=== PATIENT | female | born 1955 | race African-American/Black ===

== ENCOUNTER → 2016-08-26 | Outpatient (CLI) | payer OTHER ==
[~2016-08-26] MED LIST: AMLO10TA2 PO; CIPR500T89 PO; DARV100T; FISH1000 PO; FLAG500T PO; LISI-542 PO; METF500T PO; METO25TAB PO; NORC5TAB PO; PROTPAK PO; RANI150T PO; SIMV20TA2 PO; VITA100066 PO; VITMTA PO; ZOFR20TA PO
== END ==
LOC: M LRY 13:13
PROVIDERS: ATTEND Physician Assistant
DX: M17.0 Bilateral primary osteoarthritis of knee (principal)

== ENCOUNTER → 2016-08-26 | Outpatient (REF) | payer OTHER | LOC: M SFHCLERA 13:19 | PROVIDERS: ATTEND Family Medicine | DX: E11.69 Type 2 diabetes mellitus with other specified complication (principal) ==

== ENCOUNTER → 2016-09-01 | Outpatient (CLI) | payer OTHER ==
[2016-09-01 17:27] LABS: ALBUMIN 4.3 GM/DL (3.2-5.2); ALKALINE PHOSPHATASE 63 U/L (45-117); ALT/SGPT 33 U/L (12-78); ANION GAP 10 MEQ/L (8-16); AST/SGOT 27 U/L (15-37); BILIRUBIN,DIRECT 0.1 MG/DL (0.0-0.2); BILIRUBIN,TOTAL 0.4 MG/DL (0.2-1.0); BLOOD UREA NITROGEN 14 MG/DL (7-18); CALCIUM LEVEL 9.7 MG/DL (8.8-10.2); CARBON DIOXIDE LEVEL 30 MEQ/L (21-32); CHLORIDE LEVEL 101 MEQ/L (98-107); CREATININE FOR GFR 0.72 MG/DL (0.55-1.02); GLOMERULAR FILTRATION RATE > 60.0 (>45); GLUCOSE, FASTING 76 MG/DL (80-110); PHOSPHORUS LEVEL 3.8 MG/DL (2.5-4.9); POTASSIUM SERUM 4.4 MEQ/L (3.5-5.1); SODIUM LEVEL 141 MEQ/L (136-145); TOTAL PROTEIN 7.6 GM/DL (6.4-8.2)
== END ==
LOC: M LRY 11:16
PROVIDERS: ATTEND Physician Assistant
DX: M17.0 Bilateral primary osteoarthritis of knee (principal)

== ENCOUNTER → 2016-09-01 | Outpatient (REF) | payer OTHER ==
[2016-09-01 17:24] LABS: MEAN CORPUSCULAR HEMOGLOBIN 28.6 pg (27.0-33.0); MEAN CORPUSCULAR VOLUME 89.5 fl (80.0-96.0); WHITE BLOOD COUNT 5.4 K/mm3 (4.0-10.0)
[2016-09-01 17:25] LABS: ALBUMIN 4.2 GM/DL (3.2-5.2); ALBUMIN/GLOBULIN RATIO 1.35 (1.00-1.93); ALKALINE PHOSPHATASE 66 U/L (45-117); ALT/SGPT 31 U/L (12-78); ANION GAP 10 MEQ/L (8-16); AST/SGOT 25 U/L (15-37); BILIRUBIN,TOTAL 0.3 MG/DL (0.2-1.0); BLOOD UREA NITROGEN 14 MG/DL (7-18); CALCIUM LEVEL 9.9 MG/DL (8.8-10.2); CARBON DIOXIDE LEVEL 30 MEQ/L (21-32); CHLORIDE LEVEL 103 MEQ/L (98-107); CHOLESTEROL LEVEL 257 MG/DL (<200); CREATININE FOR GFR 0.68 MG/DL (0.55-1.02); GLOMERULAR FILTRATION RATE > 60.0 (>45); GLUCOSE, FASTING 80 MG/DL (80-110); POTASSIUM SERUM 4.3 MEQ/L (3.5-5.1); SODIUM LEVEL 143 MEQ/L (136-145); TOTAL PROTEIN 7.3 GM/DL (6.4-8.2); TRIGLYCERIDES LEVEL 99 MG/DL (<150)
== END ==
LOC: M SFHCLERA 11:13
PROVIDERS: ATTEND Family Medicine
DX: E11.69 Type 2 diabetes mellitus with other specified complication (principal)

== ENCOUNTER → 2016-12-10 | Outpatient (CLI) | payer OTHER ==
[~2016-12-10] MED LIST changes: +NORC1TAB4 PO; -NORC5TAB PO
--- NOTE | 2016-12-15 11:06 | DEXA ---
AP SPINE L1 - L4 1.319 1.0 1.5 LT FEMUR TOTAL 0.903 -0.8 -0.9 RT FEMUR TOTAL 0.915 -0.7 -0.8 TOTAL BODY TOTAL OTHER DUAL FEMUR FRAX* ASSESSMENT Risk factors: Family history (parent hip fracture). Tobacco use ( current smoker). 10 year probability of fracture Major osteoporotic fracture 16.9 % Hip fracture 1.7 % COMMENTS: Normal bone densitometry of the spine. There is low bone density of the hips. FOLLOW-UP: Recommendation for the next bone density exam: 2 years. MTDD
== END ==
LOC: M WHC 13:54
PROVIDERS: ATTEND Family Medicine
DX: Z13.820 Encounter for screening for osteoporosis (principal); M85.80 Other specified disorders of bone density and structure, unspecified site

== ENCOUNTER → 2017-01-15 | Outpatient (CLI) | payer OTHER ==
[~2017-01-15] MED LIST changes: +GABA-279 PO
--- NOTE | 2017-01-15 11:04 | REP ---
Clinical: Trauma. Technique: AP, lateral, bilateral oblique and sunrise views of the left knee. Findings: Soft tissue swelling and moderate to large suprapatellar effusion is appreciated. Underlying osteopenia and early advanced tricompartmental osteoarthritic degenerative changes are noted. No obvious acute fracture. Impression: Anterior swelling and moderate to large suprapatellar effusion. Osteopenia and early advanced tricompartmental arthritic changes. No obvious acute fracture dislocation. Signed by Ramesh Givens MD 01/15/2017 10:56 A
--- NOTE | 2017-01-15 11:06 | REP ---
Clinical: Trauma. Technique: AP and frog lateral views of the left femur conjunction with the series. Findings: Moderate age-related changes at the left hip noted along with early advanced tricompartmental changes at the knee. Anterior swelling at the knee and moderate to large suprapatellar effusion is identified. There is no evidence for acute femoral fracture or dislocation. Impression: No acute fracture dislocation. Arthritic degenerative changes. Swelling at the knee and moderate to large suprapatellar effusion. Signed by Ramesh Givens MD 01/15/2017 10:58 A
== END ==
LOC: M LRY 10:22
PROVIDERS: ATTEND Nurse Practitioner Family
DX: M17.9 Osteoarthritis of knee, unspecified (principal); M25.462 Effusion, left knee; M85.862 Other specified disorders of bone density and structure, left lower leg

== ENCOUNTER 2017-01-18 18:27 | Emergency (ER) | payer OTHER ==
[~2017-01-18] VITALS: Ht 157.5 cm; Wt 63.5 kg
[~2017-01-18 18:27] MED LIST changes: -GABA-279 PO
[2017-01-18] MEDS ORDERED: GABA-279 PO (18:44)
[2017-01-18] MEDS ORDERED: ACETAMINOPHEN TAB 650MG DOSE (2X325MG) PO ONE (19:15)
--- NOTE | 2017-01-18 19:53 | REP ---
Clinical: Trauma. Pain and swelling. Technique: AP and lateral views of the left tibia / fibula. Findings: Moderate arthritic degenerative changes at the knee and ankle joint are appreciated. No acute fracture or dislocation identified. Subcutaneous emphysema or radiodense foreign body. Impression: Moderate arthritic degenerative changes at the knee and ankle. No acute fracture or dislocation. Signed by Ramesh Givens MD 01/18/2017 07:45 P
--- NOTE | 2017-01-18 19:55 | REP ---
Clinical: Trauma. Pain and swelling. Technique: AP, lateral, bilateral oblique and sunrise views of the left knee. Findings: Moderate tricompartmental osteoarthritic degenerative changes are appreciated. Soft tissue swelling is noted along with joint and suprapatellar effusion. No obvious acute fracture or dislocation identified. Impression: Moderate tricompartmental osteoarthritic degenerative changes. Soft tissue swelling and effusion. No obvious acute fracture or dislocation. Signed by Ramesh Givens MD 01/18/2017 07:47 P
[2017-01-18 20:05] VITALS: BP 141/67
== END 2017-01-18 20:10 | disposition home or self-care (01) ==
LOC: M ED 19:26
DX: M25.462 Effusion, left knee (principal); S80.12XA Contusion of left lower leg, initial encounter; S80.02XA Contusion of left knee, initial encounter; W17.2XXA Fall into hole, initial encounter; Y92.410 Unspecified street and highway as the place of occurrence of the external cause; Y93.89 Activity, other specified; Y99.0 Civilian activity done for income or pay; M17.12 Unilateral primary osteoarthritis, left knee; E78.00 Pure hypercholesterolemia, unspecified; I10 Essential (primary) hypertension; E11.9 Type 2 diabetes mellitus without complications; F17.200 Nicotine dependence, unspecified, uncomplicated; Z90.79 Acquired absence of other genital organ(s); Z79.899 Other long term (current) drug therapy

== ENCOUNTER → 2017-01-23 | Outpatient (REF) | payer OTHER ==
[~2017-01-23] MED LIST changes: +GABA-279 PO
[2017-01-23 16:56] LABS: ALBUMIN 3.8 GM/DL (3.2-5.2); ALBUMIN/GLOBULIN RATIO 1.15 (1.00-1.93); ALKALINE PHOSPHATASE 68 U/L (45-117); ALT/SGPT 32 U/L (12-78); ANION GAP 8 MEQ/L (8-16); AST/SGOT 32 U/L (15-37); BILIRUBIN,TOTAL 0.4 MG/DL (0.2-1.0); BLOOD UREA NITROGEN 12 MG/DL (7-18); CALCIUM LEVEL 9.6 MG/DL (8.8-10.2); CARBON DIOXIDE LEVEL 28 MEQ/L (21-32); CHLORIDE LEVEL 103 MEQ/L (98-107); CHOLESTEROL LEVEL 206 MG/DL (<200); CREATININE FOR GFR 0.64 MG/DL (0.55-1.02); GLOMERULAR FILTRATION RATE > 60.0 (>45); GLUCOSE, FASTING 78 MG/DL (80-110); POTASSIUM SERUM 4.7 MEQ/L (3.5-5.1); SODIUM LEVEL 139 MEQ/L (136-145); TOTAL PROTEIN 7.1 GM/DL (6.4-8.2); TRIGLYCERIDES LEVEL 105 MG/DL (<150)
[2017-01-23 17:25] LABS: MEAN CORPUSCULAR HEMOGLOBIN 28.3 pg (27.0-33.0); MEAN CORPUSCULAR HGB CONC 31.8 g/dl (32.0-36.5); MEAN CORPUSCULAR VOLUME 89.1 fl (80.0-96.0); RED CELL DISTRIBUTION WIDTH 13.2 % (11.5-14.5); WHITE BLOOD COUNT 6.1 K/mm3 (4.0-10.0)
== END ==
LOC: M SFHCLERA 12:49
PROVIDERS: ATTEND Family Medicine
DX: E11.69 Type 2 diabetes mellitus with other specified complication (principal); E55.9 Vitamin D deficiency, unspecified

== ENCOUNTER → 2017-03-23 | Outpatient (CLI) | payer OTHER ==
[~2017-03-23] MED LIST changes: +CIPR-249 PO; -CIPR500T89 PO; -METF500T PO; +METF500T13 PO
--- NOTE | 2017-03-23 20:50 | REP ---
MRI left knee without contrast: 03/23/2017. TECHNIQUE: Axial fat suppressed PD, coronal and sagittal PD and fat suppressed T2 with T2 gradient echo sagittal also provided. There is a very large joint effusion suprapatellar bursa in all three compartments with fluid in the intercondylar notch. The ACL does not show definite contiguous fibers and the PCL is intact with some fibers, although lax. There is fluid in the intercondylar notch into the Hoffa fat pad and also posterior to the PCL and ACL. There is fluid behind the posterior horn of the medial meniscus and deep to the capsule representing meniscal capsular injury, with an oblique grade 3 signal tear of that posterior horn. Chondromalacia grade 2 medial compartment with bowing of the MCL, significant bowing of the medial patellar retinaculum by the large bursal fluid in the recess deep to the retinaculum and adjacent to the medial femoral condyle. There is a small popliteal fossa cyst behind the medial femoral condyle at the medial head of the gastrocnemius from the meniscal tear/injury. Likewise, the lateral meniscus shows significant injury with truncation and displacement and tear in the body. Posterior horn also showing trucation. I do not see a displaced meniscal fragment in the lateral compartment, however. There is chondromalacia grade 2 of the femoral condyle and tibial plateau and the lateral collateral ligamentous complex also shows strain and partial tearing with extensive bowing of the lateral patellar retinaculum due to the large bursal fluid collection deep to the retinaculum and adjacent to the lateral femoral condyle. There is patellar subluxation by a few millimeters and large suprapatellar bursal effusion of the medial suprapatellar plica with synovial thickening and synovitis/bursitis evident all around the knee. Subchondral cysts are noted in the lateral tibial plateau adjacent to the torn lateral meniscus, which has diminutive posterior horn and oblique grade 3 signal in that horn above the cysts. There are also subchondral cysts in the tibial plateau between the tibial spines and another in the junction of the epiphysis and the phthisis of the medial tibial plateau deep to the tibial spine. Extensor mechanism shows quadriceps and patellar tendons intact. I do not see a definite acute fracture. Impression: 1. Extensive chronic and acute changes of the knee with PCL strain and ACL tear without definite contiguous fibers to support a complete tendon. I suspect a high-grade tear. 2. Tears of the posterior horn, medial and lateral menisci with the anterior horn of the lateral meniscus also diminutive and displaced. Fluid posterior to the posterior horn of the medial meniscus and deep to the capsule representing a meniscal capsular injury. 3. There is a small popliteal fossa cyst behind the medial femoral condyle about the medial head of the gastrocnemius muscle. 4. Mild patellar subluxation and significant tricompartment chondromalacia with large effusion, synovitis and bursitis evident with bowing of the retinaculum, medial greater than lateral. 5. Collateral ligamentous complexes with strain lateral greater than medial. 6. Extensor mechanism intact. Signed by Blake Purdy MD 03/23/2017 09:33 P
== END ==
LOC: M RAD 11:01
PROVIDERS: ATTEND Family Medicine
DX: S86.812A Strain of other muscle(s) and tendon(s) at lower leg level, left leg, initial encounter (principal); M23.92 Unspecified internal derangement of left knee; M23.342 Other meniscus derangements, anterior horn of lateral meniscus, left knee; M23.304 Other meniscus derangements, unspecified medial meniscus, left knee; M23.301 Other meniscus derangements, unspecified lateral meniscus, left knee; M71.22 Synovial cyst of popliteal space [Baker], left knee; M22.42 Chondromalacia patellae, left knee; M70.52 Other bursitis of knee, left knee

== ENCOUNTER → 2017-04-12 | Outpatient (CLI) | payer OTHER ==
--- NOTE | 2017-04-13 11:52 | REP ---
CHEST X-RAY: Two views. HISTORY: Cough. COMPARISON STUDY: August 03, 2013. FINDINGS: The lungs are symmetrically aerated and free of infiltrate. Pleural angles are sharp. Heart size is normal. There are degenerative changes in the thoracic spine as before. IMPRESSION: No active disease. Signed by Shawn Augustin MD 04/13/2017 12:37 P
== END ==
LOC: M LRY 15:30
PROVIDERS: ATTEND Nurse Practitioner Family
DX: R05 Cough (principal)

== ENCOUNTER → 2017-06-16 | Outpatient (REF) | payer OTHER ==
[2017-06-16 18:47] LABS: CBCMD ORDERED? YES (YES); MEAN CORPUSCULAR HEMOGLOBIN 28.3 pg (27.0-33.0); MEAN CORPUSCULAR HGB CONC 32.6 g/dl (32.0-36.5); MEAN CORPUSCULAR VOLUME 86.9 fl (80.0-96.0); RED CELL DISTRIBUTION WIDTH 15.2 % (11.5-14.5); WHITE BLOOD COUNT 4.4 10^3/uL (4.0-10.0)
[2017-06-16 19:32] LABS: ALBUMIN/GLOBULIN RATIO 1.25 (1.00-1.93); ALKALINE PHOSPHATASE 55 U/L (45-117); ALT/SGPT 38 U/L (12-78); ANION GAP 12 MEQ/L (8-16); AST/SGOT 41 U/L (15-37); BILIRUBIN,TOTAL 0.4 MG/DL (0.2-1.0); BLOOD UREA NITROGEN 7 MG/DL (7-18); CALCIUM LEVEL 9.3 MG/DL (8.8-10.2); CARBON DIOXIDE LEVEL 28 MEQ/L (21-32); CHLORIDE LEVEL 101 MEQ/L (98-107); CREATININE FOR GFR 0.58 MG/DL (0.55-1.02); GLOMERULAR FILTRATION RATE > 60.0 (>45); GLUCOSE, FASTING 60 MG/DL (80-110); POTASSIUM SERUM 3.9 MEQ/L (3.5-5.1); SODIUM LEVEL 141 MEQ/L (136-145); TOTAL PROTEIN 7.2 GM/DL (6.4-8.2)
[2017-06-16 21:03] LABS: EOSINOPHILS 3 % (0-5)
== END ==
LOC: M SFHCLERA 13:55
PROVIDERS: ATTEND Family Medicine
DX: R63.4 Abnormal weight loss (principal); R19.8 Other specified symptoms and signs involving the digestive system and abdomen

== ENCOUNTER → 2017-07-15 | Outpatient (CLI) | payer OTHER | LOC: M LAB 12:37 | PROVIDERS: ATTEND Internal Medicine Gastroenterology | DX: R19.4 Change in bowel habit (principal) ==

== ENCOUNTER 2017-07-27 09:29 | Day surgery (SDC) | payer OTHER ==
[~2017-07-27] VITALS: Ht 157.5 cm; Wt 60.3 kg
[~2017-07-27 09:29] MED LIST changes: +LIDOCAINE 2% INJ 100 MG/5 ML SDV (FOR ANES.) As Ordered ONE; +PROPOFOL 200 MG/20 ML VIAL As Ordered ONE
[2017-07-27] MEDS ORDERED: NS 1,000 ML IV ONE (09:45)
[2017-07-27] MEDS ORDERED: TYLENOL PO (10:23)
[2017-07-27] MEDS ORDERED: CODIENE PO (10:23)
--- NOTE | 2017-07-27 10:50 | ROOR ---
Patient Name: Marylou Romero Procedure Date: 07/27/2017 10:25 AM Date of : 1955 Age: 62 Room: [facility] Gender: Female Note Status: Finalized Procedure: Colonoscopy Indications: Screening for colorectal malignant neoplasm, Incidental change in bowel habits noted Providers: Miguel YO MD Referring MD: Taco Wiley Md Requesting Provider: Medicines: Monitored Anesthesia Care Complications: No immediate complications. Procedure: Pre-Anesthesia Assessment: - The heart rate, respiratory rate, oxygen saturations, blood pressure, adequacy of pulmonary ventilation, and response to care were monitored throughout the procedure. The Colonoscope was introduced through the anus and advanced to 5 cm into the ileum. The colonoscopy was performed without difficulty. The patient tolerated the procedure well. The quality of the bowel preparation was good. Findings: The perianal and digital rectal examinations were normal. A 5 mm polyp was found in the ascending colon. The polyp was sessile. The polyp was removed with a cold snare. Resection and retrieval were complete. Three sessile polyps were found in the sigmoid colon. The polyps were 3 to 4 mm in size. These polyps were removed with a cold snare. Resection and retrieval were complete. Multiple small-mouthed diverticula were found in the sigmoid colon. Small Internal Hemorrhoids. The exam was otherwise without abnormality on direct and retroflexion views. The terminal ileum appeared normal. Impression: - One 5 mm polyp in the ascending colon, removed with a cold snare. Resected and retrieved. - Three 3 to 4 mm polyps in the sigmoid colon, removed with a cold snare. Resected and retrieved. - Mild diverticulosis in the sigmoid colon and small Internal Hemorrhoids. - The colon was otherwise normal on direct and retroflexion views. - The examined portion of the ileum was normal. Recommendation: - Repeat colonoscopy in 3 years for surveillance. - Low Gluten diet (= low FODMAP diet). Miguel Yo MD Miguel YO MD 07/27/2017 10:50:05 AM This report has been signed electronically. Number of Addenda: 0 Note Initiated On: 07/27/2017 10:25 AM Estimated Blood Loss: Estimated blood loss: none.
[2017-07-27] MEDS ORDERED: PROPOFOL 200 MG/20 ML VIAL As Ordered ONE (10:57)
[2017-07-27 11:05] VITALS: BP 151/91
== END 2017-07-27 11:26 | disposition home or self-care (01) ==
LOC: M OPP 09:29
PROVIDERS: ATTEND Internal Medicine Gastroenterology
DX: R19.4 Change in bowel habit (principal); D12.2 Benign neoplasm of ascending colon; D12.5 Benign neoplasm of sigmoid colon; K57.30 Diverticulosis of large intestine without perforation or abscess without bleeding; K64.8 Other hemorrhoids; F17.210 Nicotine dependence, cigarettes, uncomplicated; I10 Essential (primary) hypertension; E78.5 Hyperlipidemia, unspecified; J45.909 Unspecified asthma, uncomplicated; E11.9 Type 2 diabetes mellitus without complications; Z80.6 Family history of leukemia; Z80.42 Family history of malignant neoplasm of prostate; Z79.82 Long term (current) use of aspirin; Z79.84 Long term (current) use of oral hypoglycemic drugs; Z79.899 Other long term (current) drug therapy

== ENCOUNTER → 2017-09-10 | Outpatient (REF) | payer OTHER | LOC: M SFHCLERA 11:01 | DX: R10.11 Right upper quadrant pain (principal); Z53.9 Procedure and treatment not carried out, unspecified reason ==

== ENCOUNTER → 2017-09-17 | Outpatient (REF) | payer OTHER | LOC: M SFHCLERA 14:08 | DX: R10.11 Right upper quadrant pain (principal) ==

== ENCOUNTER → 2017-09-18 | Outpatient (CLI) | payer OTHER ==
[2017-09-18 10:31] LABS: ALBUMIN 4.1 GM/DL (3.2-5.2); ALBUMIN/GLOBULIN RATIO 1.41 (1.00-1.93); ALKALINE PHOSPHATASE 50 U/L (45-117); ALT/SGPT 27 U/L (12-78); ANION GAP 7 MEQ/L (8-16); AST/SGOT 25 U/L (7-37); BILIRUBIN,TOTAL 0.4 MG/DL (0.2-1.0); BLOOD UREA NITROGEN 10 MG/DL (7-18); CALCIUM LEVEL 9.5 MG/DL (8.8-10.2); CARBON DIOXIDE LEVEL 31 MEQ/L (21-32); CHLORIDE LEVEL 105 MEQ/L (98-107); CREATININE FOR GFR 0.65 MG/DL (0.55-1.02); GLOMERULAR FILTRATION RATE > 60.0 (>45); GLUCOSE, FASTING 80 MG/DL (70-100); POTASSIUM SERUM 3.8 MEQ/L (3.5-5.1); SODIUM LEVEL 143 MEQ/L (136-145)
== END ==
LOC: M RAD 08:48
DX: R10.11 Right upper quadrant pain (principal)
CPT/HCPCS: 76705

== ENCOUNTER → 2017-10-21 | Outpatient (CLI) | payer OTHER ==
[~2017-10-21] MED LIST changes: -AMLO10TA2 PO; -CIPR-249 PO; -DARV100T; -FISH1000 PO; -FLAG500T PO; -GABA-279 PO; +GASTROGRAFIN SOLUTION 30ML (Q9963) As Ordered; +ISOVUE-370 76% 100ML VIAL (Q9967) As Ordered; -LIDOCAINE 2% INJ 100 MG/5 ML SDV (FOR ANES.) As Ordered ONE; -LISI-542 PO; -METF500T13 PO; -METO25TAB PO; -NORC1TAB4 PO; -PROPOFOL 200 MG/20 ML VIAL As Ordered ONE; -PROTPAK PO; -RANI150T PO; -SIMV20TA2 PO; -VITA100066 PO; -VITMTA PO; -ZOFR20TA PO
== END ==
LOC: M RAD 15:39
DX: R10.11 Right upper quadrant pain (principal)

== ENCOUNTER → 2018-03-22 | Outpatient (REF) | payer OTHER ==
[2018-03-22 16:53] LABS: BASO # 0.1 10^3/uL (0.0-0.2); BASO % 0.7 % (0.0-1.0); EOS # 0.1 10^3/uL (0.0-0.50); EOS % 1.9 % (0.0-3.0); HEMATOCRIT 39.2 % (36.0-47.0); HEMOGLOBIN 12.8 g/dl (12.0-15.5); IMMATURE GRANULOCYTE % 0.3 % (0-3.0); LYMPH # 2.3 10^3/uL (1.5-4.5); LYMPH % 34.7 % (24.0-44.0); MEAN CORPUSCULAR HEMOGLOBIN 28.6 pg (27.0-33.0); MEAN CORPUSCULAR HGB CONC 32.7 g/dl (32.0-36.5); MEAN CORPUSCULAR VOLUME 87.5 fl (80.0-96.0); MONO # 0.5 10^3/uL (0.0-0.8); MONO % 6.8 % (0.0-5.0); NEUTROPHILS # 3.8 10^3/uL (1.8-7.7); NEUTROPHILS % 55.6 % (36.0-66.0); PLATELET COUNT, AUTOMATED 310 10^3/uL (150-450); RED BLOOD COUNT 4.48 10^6/uL (4.00-5.40); RED CELL DISTRIBUTION WIDTH 13.9 % (11.5-14.5); WHITE BLOOD COUNT 6.8 10^3/uL (4.0-10.0)
[2018-03-22 16:59] LABS: ESTIMATED AVERAGE GLUCOSE 120 MG/DL (60-110); HEMOGLOBIN A1c 5.8 %
[2018-03-22 17:06] LABS: ALBUMIN/GLOBULIN RATIO 1.21 (1.00-1.93); ALKALINE PHOSPHATASE 62 U/L (45-117); ALT/SGPT 31 U/L (12-78); ANION GAP 11 MEQ/L (8-16); AST/SGOT 24 U/L (7-37); BILIRUBIN,TOTAL 0.3 MG/DL (0.2-1.0); BLOOD UREA NITROGEN 18 MG/DL (7-18); CALCIUM LEVEL 9.7 MG/DL (8.8-10.2); CARBON DIOXIDE LEVEL 30 MEQ/L (21-32); CHLORIDE LEVEL 103 MEQ/L (98-107); CHOLESTEROL LEVEL 212 MG/DL (<200); CREATININE FOR GFR 0.84 MG/DL (0.55-1.30); GLOMERULAR FILTRATION RATE > 60.0 (>45); GLUCOSE, FASTING 78 MG/DL (70-100); HDL CHOLESTEROL 130 MG/DL (>40); LDL CHOLESTEROL 64.2 MG/DL (<100); NON-HDL-C 82 MG/DL; POTASSIUM SERUM 4.8 MEQ/L (3.5-5.1); SODIUM LEVEL 144 MEQ/L (136-145); THYROID STIMULATING HORMONE 0.542 uIU/ML (0.358-3.740); TOTAL PROTEIN 7.3 GM/DL (6.4-8.2); TRIGLYCERIDES LEVEL 89 MG/DL (<150)
[2018-03-22 17:08] LABS: CREATININE, URINE 29.4 MG/DL; MALB URINE SIEMENS 11.4 MG/L; MAU/CREAT RATIO 38.7 MCG/MG (0.0-30.0)
== END ==
LOC: M SFHCLERA 12:22
DX: E11.42 Type 2 diabetes mellitus with diabetic polyneuropathy (principal)

== ENCOUNTER 2018-06-22 12:48 | Emergency (ER) | payer OTHER ==
[2018-06-22 15:18] LABS: KETONE, URINE AUTO RFX TRACE mg/dL (NEGATIVE); MUCUS, URINE RFX SMALL (NEGATIVE); NITRITE, URINE AUTO RFX NEGATIVE (NEGATIVE); RBC, URINE AUTO RFX 0 /HPF (0-3); SPECIFIC GRAVITY UR AUTO RFX 1.021 (1.002-1.035); SQUAM EPITHELIAL CELL UR AURFX 0 /HPF (0-6)
[2018-06-22 15:19] LABS: LEUKOCYTE ESTERASE UR AUTO RFX 3+ (NEGATIVE); WBC, URINE AUTO RFX 104 /HPF (0-3)
[2018-06-22 15:24] LABS: BASO % 0.5 % (0.0-1.0); EOS # 0.1 10^3/uL (0.0-0.50); EOS % 1.3 % (0.0-3.0); HEMATOCRIT 39.7 % (36.0-47.0); HEMOGLOBIN 12.9 g/dl (12.0-15.5); IMMATURE GRANULOCYTE % 0.3 % (0-3.0); LYMPH % 30.9 % (24.0-44.0); MEAN CORPUSCULAR HEMOGLOBIN 27.4 pg (27.0-33.0); MEAN CORPUSCULAR HGB CONC 32.5 g/dl (32.0-36.5); MEAN CORPUSCULAR VOLUME 84.5 fl (80.0-96.0); MONO # 0.6 10^3/uL (0.0-0.8); MONO % 9.7 % (0.0-5.0); NEUTROPHILS # 3.7 10^3/uL (1.8-7.7); NEUTROPHILS % 57.3 % (36.0-66.0); PLATELET COUNT, AUTOMATED 305 10^3/uL (150-450); RED CELL DISTRIBUTION WIDTH 13.4 % (11.5-14.5); WHITE BLOOD COUNT 6.4 10^3/uL (4.0-10.0)
[2018-06-22] MEDS: NS 1,000 ML IV (15:36)
[2018-06-22] MEDS: KETOROLAC 30 MG/ML VIAL (J1885) IV (15:37)
[2018-06-22 15:55] LABS: ALBUMIN/GLOBULIN RATIO 1.25 (1.00-1.93); ALKALINE PHOSPHATASE 67 U/L (45-117); ALT/SGPT 29 U/L (12-78); ANION GAP 7 MEQ/L (8-16); AST/SGOT 17 U/L (7-37); BILIRUBIN,TOTAL 0.4 MG/DL (0.2-1.0); BLOOD UREA NITROGEN 13 MG/DL (7-18); CALCIUM LEVEL 10.1 MG/DL (8.8-10.2); CARBON DIOXIDE LEVEL 31 MEQ/L (21-32); CHLORIDE LEVEL 101 MEQ/L (98-107); CREATININE FOR GFR 0.72 MG/DL (0.55-1.30); GLOMERULAR FILTRATION RATE > 60.0 (>45); GLUCOSE, FASTING 112 MG/DL (70-100); LIPASE 227 U/L (73-393); POTASSIUM SERUM 4.6 MEQ/L (3.5-5.1); SODIUM LEVEL 139 MEQ/L (136-145); TOTAL PROTEIN 7.2 GM/DL (6.4-8.2)
[2018-06-22] MEDS ORDERED: ISOVUE-370 76% 100ML VIAL (Q9967) As Ordered (16:07)
== END 2018-06-22 18:25 | disposition home or self-care (01) ==
LOC: M ED 12:48
DX: N30.00 Acute cystitis without hematuria (principal); R11.0 Nausea; R51 Headache; E11.9 Type 2 diabetes mellitus without complications; I10 Essential (primary) hypertension; K52.9 Noninfective gastroenteritis and colitis, unspecified; F17.200 Nicotine dependence, unspecified, uncomplicated; Z79.899 Other long term (current) drug therapy; Z79.84 Long term (current) use of oral hypoglycemic drugs
CPT/HCPCS: Q9967

== ENCOUNTER → 2019-01-13 | Outpatient (REF) | payer OTHER ==
[~2019-01-13] MED LIST changes: +AMLO10TA5 PO; +CIPR-249 PO; +CODIENE PO; +CYCL10TA; +DARV100T; +FISH1000 PO; +FLAG500T PO; +GABA-1171 PO; -GASTROGRAFIN SOLUTION 30ML (Q9963) As Ordered; -ISOVUE-370 76% 100ML VIAL (Q9967) As Ordered; +LISI-542 PO; +MACR100C43 PO; +METF500T13 PO; +METO1TAB63 PO; +NORC1TAB7 PO; +PANT20TA2 PO; +PROTPAK PO; +PYRI1TAB5 PO; +RANI150T PO; +SIMV20TA2 PO; +TYLENOL PO; +VITA100066 PO; +VITMTA PO; +ZOFR4TAB14 PO; +ZOFR4TAB16 PO
== END ==
LOC: M SFHCLERA 12:10
PROVIDERS: ATTEND Family Medicine
DX: E11.42 Type 2 diabetes mellitus with diabetic polyneuropathy (principal); Z53.9 Procedure and treatment not carried out, unspecified reason

== ENCOUNTER → 2019-02-21 | Outpatient (REF) | payer OTHER ==
[2019-02-21 17:47] LABS: HEMATOCRIT 37.5 % (36.0-47.0); HEMOGLOBIN 12.1 g/dl (12.0-15.5); MEAN CORPUSCULAR HEMOGLOBIN 27.3 pg (27.0-33.0); MEAN CORPUSCULAR HGB CONC 32.3 g/dl (32.0-36.5); MEAN CORPUSCULAR VOLUME 84.7 fl (80.0-96.0); PLATELET COUNT, AUTOMATED 269 10^3/uL (150-450); RED BLOOD COUNT 4.43 10^6/uL (4.00-5.40); WHITE BLOOD COUNT 6.6 10^3/uL (4.0-10.0)
[2019-02-21 18:02] LABS: ALT/SGPT 31 U/L (12-78); BILIRUBIN,TOTAL 0.2 MG/DL (0.2-1.0); BLOOD UREA NITROGEN 16 MG/DL (7-18); CALCIUM LEVEL 8.9 MG/DL (8.8-10.2); CARBON DIOXIDE LEVEL 27 MEQ/L (21-32); CHLORIDE LEVEL 107 MEQ/L (98-107); CREATININE FOR GFR 0.78 MG/DL (0.55-1.30); GLOMERULAR FILTRATION RATE > 60.0 (>45); GLUCOSE, FASTING 90 MG/DL (70-100); POTASSIUM SERUM 4.6 MEQ/L (3.5-5.1); SODIUM LEVEL 142 MEQ/L (136-145)
[2019-02-21 18:03] LABS: ALBUMIN 3.8 GM/DL (3.2-5.2); CHOLESTEROL LEVEL 225 MG/DL (<200); CHOLESTEROL RISK RATIO 1.584 (<5); HDL CHOLESTEROL 142 MG/DL (>40); LDL CHOLESTEROL 53 MG/DL (<100); NON-HDL-C 83 MG/DL; THYROID STIMULATING HORMONE 0.797 uIU/ML (0.358-3.740); TOTAL PROTEIN 7.2 GM/DL (6.4-8.2); TRIGLYCERIDES LEVEL 152 MG/DL (<150)
[2019-02-21 18:15] LABS: MALB URINE SIEMENS 29.2 MG/L; MAU/CREAT RATIO 28.9 MCG/MG (0.0-30.0)
[2019-02-21 18:36] LABS: HEMOGLOBIN A1c 6.2 %
== END ==
LOC: M SFHCLERA 10:38
PROVIDERS: ATTEND Family Medicine
DX: E11.42 Type 2 diabetes mellitus with diabetic polyneuropathy (principal)

== ENCOUNTER 2019-03-06 07:40 | Inpatient (IN) | payer OTHER ==
[2019-03-06] VITALS (26 sets, daily range): BP systolic 131–175; BP diastolic 60–82
[~2019-03-06] VITALS: Ht 157.5 cm; Wt 68.5 kg
[~2019-03-06 07:40] MED LIST changes: -CYCL10TA; +CYCL10TA PO
[2019-03-06] MEDS ORDERED: diphenhydrAMINE INJ 50MG/ML VIAL (J1200) IV STA (07:50)
[2019-03-06] MEDS ORDERED: FAMOTIDINE INJ 20MG/2ML VIAL (S0028) IVP ONE (08:00)
[2019-03-06] MEDS ORDERED: ETOMIDATE INJ 20MG/10ML VIAL IV ONE (08:00)
[2019-03-06] MEDS ORDERED: methylPREDNISolone INJ 125 MG/2 ML VIAL (J2930) IV ONE ×2 (08:00)
[2019-03-06] MEDS ORDERED: ROCURONIUM BROMIDE 50 MG/5 ML VIAL IV ONE (08:00)
[2019-03-06] MEDS ORDERED: diphenhydrAMINE INJ 50MG/ML VIAL (J1200) IV ONE (08:00)
[2019-03-06] MEDS ORDERED: NS 1,000 ML IV ONE ×2 (08:00)
[2019-03-06 08:32] LABS: ALT/SGPT 29 U/L (12-78); BILIRUBIN,DIRECT < 0.1 MG/DL (0.0-0.2); BILIRUBIN,TOTAL 0.2 MG/DL (0.2-1.0); BLOOD UREA NITROGEN 17 MG/DL (7-18); CALCIUM LEVEL 9.9 MG/DL (8.8-10.2); CARBON DIOXIDE LEVEL 29 MEQ/L (21-32); CHLORIDE LEVEL 107 MEQ/L (98-107); COMPLEMENT C4 29 MG/DL (10-40); CREATININE FOR GFR 0.81 MG/DL (0.55-1.30); GLOMERULAR FILTRATION RATE > 60.0 (>45); GLUCOSE, FASTING 88 MG/DL (70-100); SODIUM LEVEL 140 MEQ/L (136-145); TOTAL PROTEIN 7.7 GM/DL (6.4-8.2)
[2019-03-06 08:36] LABS: BASO % 0.6 % (0.0-1.0); EOS # 0.1 10^3/uL (0.0-0.50); EOS % 2.2 % (0.0-3.0); HEMATOCRIT 39.2 % (36.0-47.0); HEMOGLOBIN 12.7 g/dl (12.0-15.5); LYMPH # 2.7 10^3/uL (1.5-4.5); LYMPH % 49.7 % (24.0-44.0); MEAN CORPUSCULAR HEMOGLOBIN 28.2 pg (27.0-33.0); MEAN CORPUSCULAR HGB CONC 32.4 g/dl (32.0-36.5); MEAN CORPUSCULAR VOLUME 87.1 fl (80.0-96.0); MONO # 0.5 10^3/uL (0.0-0.8); MONO % 8.8 % (0.0-5.0); NEUTROPHILS # 2.1 10^3/uL (1.8-7.7); NEUTROPHILS % 38.5 % (36.0-66.0); PLATELET COUNT, AUTOMATED 262 10^3/uL (150-450); WHITE BLOOD COUNT 5.5 10^3/uL (4.0-10.0)
--- NOTE | 2019-03-06 08:50 | REP ---
Portable chest x-ray: Single view. History: Post intubation. Comparison study: April 12, 2017. Findings: Endotracheal tube is seen in good position, 2.1 cm above the cezar. A nasogastric tube enters the gastric body terminating in the fundus. The lungs are symmetrically aerated. Cardiomediastinal silhouette is unremarkable. There are degenerative changes in the thoracic spine. The heart is not enlarged. Impression: Endotracheal and nasogastric tubes in good position. There is mild plate-like atelectasis right base. Electronically Signed by Shawn Augustin MD 03/06/2019 08:41 A
[2019-03-06 08:56] LABS: ERYTHROCYTE SEDIMENTATION RATE 6 mm/hr (0-30)
[2019-03-06] MEDS ORDERED: MORPHINE 4 MG/ML 1ML VIAL/SYRINGE (J2270) As Ordered ONE (09:04)
[2019-03-06] MEDS: PROPOFOL 1,000 MG in APPROPRIATE DILUENT 1 EA IV SCH ×7 (09:06→21:44)
[2019-03-06] MEDS ORDERED: MORPHINE 4 MG/ML 1ML VIAL/SYRINGE (J2270) IV ONE (09:15)
[2019-03-06] MEDS ORDERED: MIDAZOLAM HCL 50 MG in D5W 40 ML IV SCH (09:15)
[2019-03-06] MEDS ORDERED: MIDAZOLAM INJ 5 MG/ML VIAL (J2250) As Ordered ONE (09:24)
[2019-03-06] MEDS ORDERED: MIDAZOLAM INJ 2 MG/2 ML VIAL (J2250) IV PRN (09:30)
[2019-03-06] MEDS ORDERED: diphenhydrAMINE 25 MG CAP PO PRN (09:30)
[2019-03-06] MEDS ORDERED: MIDAZOLAM INJ 2 MG/2 ML VIAL (J2250) IV ONE ×2 (09:30→09:45)
[2019-03-06] MEDS ORDERED: REFRIGERATOR IV KEYS XX PRN (09:30)
[2019-03-06] MEDS ORDERED: GLUCOSE 4 GM CHEW TABLET PO PRN (10:00)
[2019-03-06] MEDS ORDERED: DEXTROSE 50% 50 ML SYRINGE IV PRN (10:00)
[2019-03-06] MEDS ORDERED: GLUCAGON FOR INJ 1 MG VIAL (J1610) SC PRN (10:00)
[2019-03-06] MEDS: MIDAZOLAM HCL 100 MG in D5W 80 ML IV SCH ×2 (10:00→21:23)
[2019-03-06] MEDS ORDERED: METO50TA7 PO (10:40)
[2019-03-06] MEDS ORDERED: ACET300T52 PO (10:40)
[2019-03-06] MEDS: ALBUTEROL SULFATE 2.5 MG/0.5 ML INH NEB SOLN NEB SCH ×3 (11:24→19:43)
--- NOTE | 2019-03-06 12:15 | HPE ---
DATE OF ADMISSION: 03/06/2019 Start time: 0900 Stop time: 937 I attended Marylou Romero here in the emergency room. Patient examined and chart reviewed and I spoke at length with Dr. Morgan regarding her status. In essence, this is a 63-year-old female with known diabetes non-insulin dependent and continued tobacco abuse with known neuropathy. She has underlying hypertension. She presented today saying that she felt as though her lips and tongue were swelling. She quickly developed angioedema, compromised her airway, was able to be intubated by Dr. Morgan. Currently despite significant doses of Propofol, she is still quite awake. She is now receiving Versed in addition. No other history is available and no family is immediately present. ALLERGIES: Listed as none but we will now list LISINOPRIL. MEDICATIONS AT HOME: - albuterol via nebulizer - Tylenol with Codeine - fish oil - baby aspirin - multivitamin - metoprolol 50 mg tablets half tablet twice daily - metformin 500 mg twice daily - omeprazole 20 mg a day - lisinopril 5 mg a day - simvastatin 20 mg daily - amlodipine 10 mg a day - gabapentin 100 mg three times daily - Flexeril 10 mg three times daily as needed PAST MEDICAL HISTORY: Significant for: Type 2 diabetes mellitus. Hypertension. Diverticulosis. Hiatal hernia. Diabetic neuropathy. Ongoing tobacco abuse. Hyperlipidemia. SOCIAL HISTORY: She is known to smoke. FAMILY HISTORY: Unobtainable. REVIEW OF SYSTEMS: Otherwise unobtainable. PHYSICAL EXAMINATION: Currently reveals a female who appears her stated age. Temperature 98.4, blood pressure 154 systolic, heart rate currently 104 and regular, respiratory rate 18-20. HEENT: Otherwise normocephalic, atraumatic. Pupils react. Neck is supple. She does have mild protrusion of the tongue with some swelling of the lips. Borderline proptosis and some conjunctival erythema and injection. Trachea is in the midline. Chest is clear to both auscultation and percussion. No significant focal adventitious breath sounds are identified other than some occasional rhonchus that clears completely with suctioning. Cardiac exam is regular. Peripheral pulses palpable, no obvious edema. Abdomen soft, nontender with active bowel sounds. No obvious organomegaly or masses. Extremities: No cyanosis or clubbing. Neurologically she is awake and alert and appropriate. She follows commands. Psychiatric: Minimally anxious but easily calms down with discussion. Other laboratories show a white blood cell count of 5.5, hemoglobin 12.7, platelet count 262,000. 38% segmented neutrophils, 49 lymphs, no bands. Sodium 140, potassium 4.0, chloride 107, CO2 29, BUN 17, creatinine 0.81. Factor XII is pending. C4 is normal at 29. C1 esterase evaluation is pending. IMPRESSION: Angioedema likely secondary to cathy inhibitors. Airway compromise with need for mechanical ventilation due to airway compromise. Hypertension. Diabetes mellitus. Chronic pain syndrome. RECOMMENDATIONS: At this point, we will adjust her ventilator. Blood gas just drawn shows a pH of 7.34 with a pCO2 of 42. Remainder of that lab work is pending. Fresh frozen plasma has been given by the emergency room. We will give her antihistamines and steroids. We will avoid all potentially offending agents. We will continue sedation as needed. Pain control as well. She will be hydrated. We will facilitate transfer to intensive care unit (ICU). Hopefully her edema is much improved in the next 24-48 hours and can facilitate extubation but we will certainly have her pharynx evaluated by ENT prior to doing so. At this point, she is critically ill. I left the bedside at 0938 hours. 38 minutes of critical care time delivered at the bedside not including procedures.
[2019-03-06] MEDS: CHLORHEXIDINE GLUCONATE 0.12 % 15ML UDC (PERIDEX ORAL RINSE) MT SCH ×2 (13:35→20:14)
[2019-03-06] MEDS: PANTOPRAZOLE 40MG INJ (PROTONIX) (C9113) IV SCH (13:35)
[2019-03-06] MEDS: KCL 10MEQ IN D5/0.45NS 1000ML 1,000 ML IV SCH (13:36)
[2019-03-06] MEDS: HEPARIN SOD (PORCINE) 5000 UNITS/ML VIAL SC SCH ×2 (13:37→21:19)
[2019-03-06] MEDS: HumaLOG INSULIN (NovoLOG) PER UNIT SC SCH ×2 (13:37→18:00)
[2019-03-06] MEDS: methylPREDNISolone INJ 125 MG/2 ML VIAL (J2930) IV SCH ×2 (14:50→20:14)
[2019-03-06] MEDS: MORPHINE 4 MG/ML 1ML VIAL/SYRINGE (J2270) IV PRN (21:44)
[2019-03-07] VITALS (27 sets, daily range): BP systolic 114–187; BP diastolic 57–91
[2019-03-07] MEDS: ALBUTEROL SULFATE 2.5 MG/0.5 ML INH NEB SOLN NEB SCH ×6 (00:20→23:29)
[2019-03-07] MEDS: KCL 10MEQ IN D5/0.45NS 1000ML 1,000 ML IV SCH ×3 (00:37→21:21)
[2019-03-07] MEDS: PROPOFOL 1,000 MG in APPROPRIATE DILUENT 1 EA IV SCH ×7 (00:38→22:40)
[2019-03-07] MEDS: HumaLOG INSULIN (NovoLOG) PER UNIT SC SCH ×4 (00:39→18:09)
[2019-03-07] MEDS: MORPHINE 4 MG/ML 1ML VIAL/SYRINGE (J2270) IV PRN ×6 (01:46→22:41)
[2019-03-07] MEDS: methylPREDNISolone INJ 125 MG/2 ML VIAL (J2930) IV SCH ×4 (02:47→21:21)
[2019-03-07 05:06] LABS: HEMATOCRIT 38.1 % (36.0-47.0); HEMOGLOBIN 12.7 g/dl (12.0-15.5); MEAN CORPUSCULAR HEMOGLOBIN 27.7 pg (27.0-33.0); MEAN CORPUSCULAR HGB CONC 33.3 g/dl (32.0-36.5); MEAN CORPUSCULAR VOLUME 83.2 fl (80.0-96.0); PLATELET COUNT, AUTOMATED 256 10^3/uL (150-450); RED BLOOD COUNT 4.58 10^6/uL (4.00-5.40); WHITE BLOOD COUNT 11.1 10^3/uL (4.0-10.0)
[2019-03-07 05:23] LABS: ALBUMIN 3.7 GM/DL (3.2-5.2); ALT/SGPT 25 U/L (12-78); BILIRUBIN,TOTAL 0.3 MG/DL (0.2-1.0); BLOOD UREA NITROGEN 11 MG/DL (7-18); CALCIUM LEVEL 8.8 MG/DL (8.8-10.2); CARBON DIOXIDE LEVEL 28 MEQ/L (21-32); CHLORIDE LEVEL 99 MEQ/L (98-107); CHOLESTEROL LEVEL 273 MG/DL (< 200); CPK CREATINE PHOSPHOKINASE 198 U/L (26-192); CREATININE FOR GFR 0.82 MG/DL (0.55-1.30); GLOMERULAR FILTRATION RATE > 60.0 (>45); GLUCOSE, FASTING 198 MG/DL (70-100); LDH LACTATE DEHYDROGENASE 240 U/L (84-246); PHOSPHORUS LEVEL 2.8 MG/DL (2.5-4.9); POTASSIUM SERUM 3.6 MEQ/L (3.5-5.1); SODIUM LEVEL 135 MEQ/L (136-145); TOTAL PROTEIN 7.4 GM/DL (6.4-8.2); TRIGLYCERIDES LEVEL 105 MG/DL (<150)
[2019-03-07] MEDS: HEPARIN SOD (PORCINE) 5000 UNITS/ML VIAL SC SCH ×3 (05:45→21:20)
[2019-03-07 06:03] LABS: ABG BASE EXCESS 0.8 (-2.0-2.0); ABG HCO3 24.4 MEQ/L (22.0-26.0); ABG PARTIAL PRESSURE CO2 35.5 mmHg (35.0-45.0); ABG PARTIAL PRESSURE O2 98.5 mmHg (75.0-100.0); ABG STANDARD HCO3 25.2 MEQ/L (22.0-26.0); ABG TOTAL CO2 25.5 MEQ/L (23.0-31.0); ABG pH (ARTERIAL) 7.455 UNITS (7.350-7.450)
--- NOTE | 2019-03-07 07:54 | REP ---
Portable chest, 06:53 a.m., single AP view with the patient semi upright: Comparison is 03/06/2019. The lung lee are clear. Cardiac size is normal. The abeba, mediastinum, skeletal structures are unremarkable. The endotracheal tube remains in satisfactory position with the tip at the level of the aortic arch, above the cezar. The tip of the endotracheal tube terminates in the abdominal left upper quadrant. The precise location of the distal tip is excluded at the inferior film margin. Impression: No significant interval change. Electronically Signed by Taco Tobias MD 03/07/2019 07:46 A
[2019-03-07] MEDS: CHLORHEXIDINE GLUCONATE 0.12 % 15ML UDC (PERIDEX ORAL RINSE) MT SCH ×2 (09:27→21:20)
[2019-03-07] MEDS: PANTOPRAZOLE 40MG INJ (PROTONIX) (C9113) IV SCH (09:28)
[2019-03-07 10:38] LABS: ABG BASE EXCESS 2.8 (-2.0-2.0); ABG O2 SATURATION 98.2 % (95.0-99.0); ABG PARTIAL PRESSURE CO2 35.6 mmHg (35.0-45.0); ABG PARTIAL PRESSURE O2 102.4 mmHg (75.0-100.0); ABG TOTAL CO2 27.1 MEQ/L (23.0-31.0); ABG pH (ARTERIAL) 7.482 UNITS (7.350-7.450)
--- NOTE | 2019-03-07 10:38 | CCN ---
DATE OF VISIT: 03/07/2019 START TIME: 829 STOP TIME: 908 I again attended Marylou Romero here in the intensive care unit. Patient has been examined and the chart is reviewed. Her tongue is a little less swollen today although still significant. T-max overnight 98.7, blood pressure 141/80, heart rate 90-110's with a sinus mechanism, respiratory rate generally in the teens. She has been examined and the chart is reviewed. She remains requiring significant levels of sedation with both Propofol and Versed. Intake and output - 2759 mL in with 1370 mL out. Most recent laboratories show white cell count 11.1, hemoglobin 12.7, platelet count 256,000, sodium 135, potassium 0.6, chloride 99, CO2 20, BUN 11, creatinine 0.82. Glucose 198. LFTs unremarkable. Blood gas done a PRVC with a rate of 16, tidal volume of 420, PEEP of 5, Fi02 of 40%, has a pH 7.455, pCO2 35.5, and pO2 98.5. PHYSICAL EXAMINATION: She is sedate. Pupils reactive, sclera clear. There is still significant edema of the oral mucosa and tongue although less than yesterday. Trachea is in the midline. LUNGS: Clear to auscultation and percussion. No significant focal adventitious breath sounds are identified. CARDIAC EXAM: Borderline tachycardiac, but regular. Peripheral pulses palpable. No edema. ABDOMEN: Soft, nontender with active bowel sounds. No obvious organomegaly or masses. EXTREMITIES: No cyanosis or clubbing. NEUROLOGIC: She is sedate, but does move all extremities when aroused. PSYCHIATRY: Shows her to be sedated. Complement is normal at 29. Her C1 Esterase studies are pending. The most pressing problem requiring my presence at the bedside: 1. Angioedema felt to be secondary to KARL inhibitor requiring intubation for airway protection. 2. Respiratory failure on the basis of above. 3. Hypertension. 4. Diabetes mellitus. 5. Diabetic neuropathy. 6. Tobacco abuse. At this point we will re-add some of her other hypertensives. She only received one unit of fresh frozen plasma (FFP) yesterday, we will give her an additional unit today. We will continue steroids and antihistamines. Sugars have been reasonable. We will begin tube feeds today. Also deep venous thrombosis (DVT) prophylaxis are in place. When we are able to we will discuss with her smoking cessation. At this point she is critically ill. I am unable to view any images as our Synapse system is currently down. My hopes is that we see continued improvement over the next 24 hours and we will be able to proceed with extubation in that time frame. Otherwise, we will proceed as above. I left the bedside at 0909 hours. 39 minutes of critical time at the bedside not including procedures.
[2019-03-07] MEDS: METOPROLOL SUCC *XL* 25MG TAB (TopROL *XL*) PO SCH (10:44)
[2019-03-07] MEDS: amLODIPine 10 MG TAB PO SCH (10:45)
[2019-03-07] MEDS ORDERED: ONDANSETRON 4MG/2ML VIAL (J2405) As Ordered ONE (23:33)
[2019-03-08] VITALS (14 sets, daily range): BP systolic 115–175; BP diastolic 58–85
[2019-03-08] MEDS: ONDANSETRON 4MG/2ML VIAL (J2405) IV PRN ×2 (00:02→13:10)
[2019-03-08] MEDS: HumaLOG INSULIN (NovoLOG) PER UNIT SC SCH ×4 (00:10→17:15)
[2019-03-08] MEDS: MIDAZOLAM HCL 100 MG in D5W 80 ML IV SCH (00:27)
[2019-03-08] MEDS: PROPOFOL 1,000 MG in APPROPRIATE DILUENT 1 EA IV SCH ×2 (02:58→06:32)
[2019-03-08] MEDS: methylPREDNISolone INJ 125 MG/2 ML VIAL (J2930) IV SCH ×3 (03:02→21:21)
[2019-03-08 05:21] LABS: HEMATOCRIT 34.3 % (36.0-47.0); HEMOGLOBIN 11.3 g/dl (12.0-15.5); MEAN CORPUSCULAR HGB CONC 32.9 g/dl (32.0-36.5); MEAN CORPUSCULAR VOLUME 85.1 fl (80.0-96.0); PLATELET COUNT, AUTOMATED 217 10^3/uL (150-450); RED BLOOD COUNT 4.03 10^6/uL (4.00-5.40)
[2019-03-08 05:40] LABS: ALBUMIN 3.3 GM/DL (3.2-5.2); ALT/SGPT 18 U/L (12-78); BILIRUBIN,TOTAL 0.2 MG/DL (0.2-1.0); BLOOD UREA NITROGEN 11 MG/DL (7-18); CALCIUM LEVEL 8.4 MG/DL (8.8-10.2); CARBON DIOXIDE LEVEL 28 MEQ/L (21-32); CHLORIDE LEVEL 102 MEQ/L (98-107); CHOLESTEROL LEVEL 275 MG/DL (< 200); CPK CREATINE PHOSPHOKINASE 110 U/L (26-192); CREATININE FOR GFR 0.92 MG/DL (0.55-1.30); GLOMERULAR FILTRATION RATE > 60.0 (>45); GLUCOSE, FASTING 201 MG/DL (70-100); LDH LACTATE DEHYDROGENASE 201 U/L (84-246); PHOSPHORUS LEVEL 2.3 MG/DL (2.5-4.9); SODIUM LEVEL 137 MEQ/L (136-145); TOTAL PROTEIN 6.8 GM/DL (6.4-8.2); TRIGLYCERIDES LEVEL 89 MG/DL (<150)
[2019-03-08] MEDS: HEPARIN SOD (PORCINE) 5000 UNITS/ML VIAL SC SCH ×3 (05:56→21:21)
[2019-03-08 06:36] LABS: ABG BASE EXCESS 0.9 (-2.0-2.0); ABG HCO3 24.2 MEQ/L (22.0-26.0); ABG O2 SATURATION 95.8 % (95.0-99.0); ABG PARTIAL PRESSURE CO2 34.1 mmHg (35.0-45.0); ABG PARTIAL PRESSURE O2 75.5 mmHg (75.0-100.0); ABG STANDARD HCO3 25.3 MEQ/L (22.0-26.0); ABG TOTAL CO2 25.3 MEQ/L (23.0-31.0); ABG pH (ARTERIAL) 7.469 UNITS (7.350-7.450)
[2019-03-08] MEDS: ALBUTEROL SULFATE 2.5 MG/0.5 ML INH NEB SOLN NEB SCH ×5 (07:33→21:44)
--- NOTE | 2019-03-08 07:35 | REP ---
Portable chest, 06:53 a.m., single AP view with the patient semi upright: Comparison is 03/07/2019. Lung lee remain clear. Cardiac size remains normal. The tip of the endotracheal tube is in the bronchus intermedius as an interval change. The endotracheal tube should be retracted. The tip of the nasogastric tube terminates in the abdominal left upper quadrant as previously. The precise location of the distal tip is excluded at the inferior film margin. Impression: The endotracheal tube tip is in the bronchus intermedius. The endotracheal tube should be retracted. Electronically Signed by Taco Tobias MD 03/08/2019 07:26 A
[2019-03-08] MEDS: KCL 10MEQ IN D5/0.45NS 1000ML 1,000 ML IV SCH (09:15)
[2019-03-08] MEDS: amLODIPine 10 MG TAB PO SCH (09:16)
[2019-03-08] MEDS: PANTOPRAZOLE 40MG INJ (PROTONIX) (C9113) IV SCH (09:16)
[2019-03-08] MEDS: METOPROLOL SUCC *XL* 25MG TAB (TopROL *XL*) PO SCH (09:16)
[2019-03-08] MEDS ORDERED: ACETAMINOPHEN TAB 650MG DOSE (2X325MG) PO PRN (11:00)
[2019-03-08] MEDS: oxyCODONE 5MG TAB PO PRN ×3 (11:09→17:49)
--- NOTE | 2019-03-08 15:23 | CCN ---
DATE OF VISIT: 03/08/2019 Start time: 0830 hours Stop time: 0905 hours I again attended Marylou Romero here in the intensive care unit. Patient has been examined and chart is reviewed. She looks much less edematous this morning. Maximum temperature (Tmax) overnight 98.7, blood pressure 115 to 170s. Heart rate generally 80s and low 100s with a sinus mechanism. Intake and output: 3516 mL in with 2620 mL out. Sodium of 137, potassium of 4.0, chloride 102, CO2 28, BUN 11, creatinine 0.92, glucose 201. White blood cell count 10.0, hemoglobin 11.3, platelet count 217,000. No differential this morning. Blood gas obtained on an SIMV of 10, tidal volume 420, PEEP of 5, pressure support of 10, FiO2 of 30%, has a pH of 7.469, pCO2 of 34, and pO2 of 75.5. Chest x-ray shows no new findings. No infiltrates. No edema. Tubes in good position. On exam, she is easily arousable despite her sedation. Pupils react. Sclerae clear. No obvious edema of the oral mucosa, lips, or tongue this morning. Trachea is in the midline. Chest is generally clear to auscultation and percussion No significant focal adventitious breath sounds identified. Cardiac exam, rate with no gallop. Peripheral pulses palpable. No edema. Abdomen soft, nontender with active bowel sounds. No convincing organomegaly or masses. Extremities: No cyanosis or clubbing. Neurologically, she is awake, alert, and appropriate. Psychiatric, she has reasonably normal mood and affect. Problems requiring my presence at the bedside: 1. Respiratory alkalosis. 2. Respiratory failure secondary to angioedema with aortic compromise. 3. Angioedema. 4. Long-standing hypertension. 5. Smh-[id number] diabetes mellitus. 6. Neuropathy. At this point, her edema is markedly improved. Sedation will be discontinued, and she will be extubated. We indeed did just that, and she was extubated without difficulty. Although voice is soft, there is no stridor. She is quite comfortable. Clearly, lisinopril is now added to her allergy list in view of her presentation. I spoke to her at length in that regard. She will be transferred to the hospitalist's service. We will cut her steroids in half and probably change them to orals in the next day or so and wean them quickly. Her C1 levels are still pending. We will continue with antihistamines for now. Glucose control has been reasonable. Likely, we will restart her hypoglycemics at some point when her diet is advanced. I left the bedside at 0905 hours. 35 minutes of critical care time delivered at the bedside not including procedures. HEAVEN
--- NOTE | 2019-03-08 16:27 | IPNPDOC ---
Text Note Date of Service The patient was seen on 03/08/19. NOTE S: patient care transitioned from patrol man to hospitalist service. patient admitted with KARL-I angioedema and intubated. States feels good today. mild dry cough, no fever, no CP, no SOB; states frontal HAWK (patient attributes it to "not eating"). patient extubated today by patrol man O: Vitals as below General: pleasant NAD AAOx3 HEENT: no tongue or lip swelling HRRR LCTA Ext: no hand edema A/P: 1) respiratory failure secondary to angioedema due to lisinopril - RESOLVED Extubated 03/08/19 transfer out of ICU in AM 2) Respiratory alkalosis - resolved (due to #1) 3) Angioedema due to karl-I C-1 lab pending Decreased steroid by 1/2 today per patrol man, tomorrow change to orals; continue antihistamine 4) Essential HTN - d/c lisinopril; continue amlodipine 5) Diabetes - not on correction insulin; with hyperglycemia Current Medications Acetaminophen (Tylenol Tab) 650 mg Q4HP PRN PO PAIN OR FEVER; Start 03/08/19 at 11:00 Albuterol Sulfate (Proventil Neb) 2.5 mg RQ4H NEB Last administered on 03/08/19at 12:08; Start 03/06/19 at 12:00 Amlodipine Besylate (Norvasc) 10 mg DAILY PO Last administered on 03/08/19at 09:16; Start 03/07/19 at 09:00 Chlorhexidine Gluconate (Peridex Oral Rinse) 5 ml BID MT Last administered on 03/07/19at 21:20; Start 03/06/19 at 09:00; Stop 03/08/19 at 09:07; Status DC Dextrose (Dextrose 50%) 25 ml ASDIRECTED PRN IV SEE LABEL COMMENTS; Start 03/06/19 at 10:00 Diphenhydramine HCl (Benadryl) 25 mg Q8HP PRN PO ITCHING; Start 03/06/19 at 09:30 Diphenhydramine HCl (Benadryl) 50 mg STAT STAT IV ; Start 03/06/19 at 07:50; Stop 03/06/19 at 07:51; Status Cancel Glucagon (Glucagon) 1 mg ASDIRECTED PRN SC SEE LABEL COMMENTS; Start 03/06/19 at 10:00 Glucose (Glucose) 16 GM ASDIRECTED PRN PO SEE LABEL COMMENTS; Start 03/06/19 at 10:00 Heparin Sodium (Porcine) (Heparin) 5,000 units Q8H SC Last administered on 03/08/19at 15:55; Start 03/06/19 at 14:00 Home Med (Med Rec Complete!) ASDIRECTED XX ; Start 03/06/19 at 10:45; Stop 03/06/19 at 10:45; Status DC Insulin Human Lispro (HumaLOG INSULIN) SEE PROTOCOL TABLE Q6H SC Last administered on 03/08/19at 05:55; Start 03/06/19 at 12:00; Stop 03/08/19 at 09:56; Status DC Insulin Human Lispro (HumaLOG INSULIN) See Protocol Table AC SC Last admi nistered on 03/08/19at 11:51; Start 03/08/19 at 12:00 Insulin Human Lispro (HumaLOG INSULIN) See Protocol Table QHS SC ; Start 03/08/19 at 21:00 Methylprednisolone (SOLUmedrol) 40 mg Q6H IV Last administered on 03/08/19at 15:55; Start 03/08/19 at 15:00 Methylprednisolone (SOLUmedrol) 80 mg Q6H IV Last administered on 03/08/19at 03:02; Start 03/06/19 at 15:00; Stop 03/08/19 at 09:07; Status DC Metoprolol Succinate (TopROL XL) 25 mg DAILY PO Last administered on 03/08/19at 09:16; Start 03/07/19 at 09:00 Midazolam HCl (Versed) 2 mg Q15MP PRN IV AGITATION Last administered on 03/06/19at 11:06; Start 03/06/19 at 09:30; Stop 03/08/19 at 09:07; Status DC Midazolam HCl 100 mg/Dextrose 100 ml @ 4 mls/hr Q24H IV Last administered on 03/08/19at 00:27; Start 03/06/19 at 10:00; Stop 03/08/19 at 09:07; Status DC Midazolam HCl 50 mg/Dextrose 50 ml @ 2 mls/hr Q24H IV Last administered on 03/06/19at 10:22; Start 03/06/19 at 09:15; Stop 03/06/19 at 13:57; Status DC Morphine Sulfate (Morphine Sulfate Inj) 2 mg Q2HP PRN IV PAIN Last administered on 03/07/19at 22:41; Start 03/06/19 at 09:30 Non-Formulary Medication (Refrigerator Hammond) Q1M PRN XX SEE LABEL COMMENTS; Start 03/06/19 at 09:30 Ondansetron HCl (ZOFRAN INJection) 4 mg Q6HP PRN IV NAUSEA OR VOMITING Last administered on 03/08/19at 13:10; Start 03/07/19 at 23:45 Oxycodone HCl (Roxicodone, Oxyir) 5 mg Q6HP PRN PO PAIN Last administered on 03/08/19 11:09; Start 03/08/19 at 11:00 Pantoprazole Sodium (Protonix) 40 mg DAILY IV Last administered on 03/08/19at 09:16; Start 03/06/19 at 09:00 Potassium Chloride/Dextrose/ Sod Cl 1,000 ml @ 100 mls/hr Q10H IV Last administered on 03/08/19at 09:15; Start 03/06/19 at 11:00; Stop 03/08/19 at 12:37; Status DC Propofol 1000 mg/ IV Miscellaneous Supplies 100 ml @ 4.09 mls/hr Q24H IV Last administered on 03/08/19at 02:58; Start 03/06/19 at 10:00; Stop 03/08/19 at 09:07; Status DC Propofol 1000 mg/ IV Miscellaneous Supplies 100 ml @ 20.45 mls/ hr Q4H54M IV Last administered on 03/06/19at 09:49; Start 03/06/19 at 08:00; Stop 03/06/19 at 10:12; Status DC VS,Fishbone, I+O VS, Fishbone, I+O Laboratory Tests 03/08/19 04:53 Red Blood Count 4.03, Mean Corpuscular Volume 85.1, Mean Corpuscular Hemoglobin 28.0, Mean Corpuscular Hemoglobin Concent 32.9, Red Cell Distribution Width 15.0 H, Calcium Level 8.4 L, Phosphorus Level 2.3 L, Aspartate Amino Transf (AST/SGOT) 13, Alanine Aminotransferase (ALT/SGPT) 18, Lactate Dehydrogenase 201, Total Creatine Kinase 110, Alkaline Phosphatase 48, Total Bilirubin 0.2, Triglycerides Level 89, Cholesterol Level 275 H, Total Protein 6.8, Albumin 3.3 Vital Signs Date Time Temp Pulse Resp B/P (MAP) Pulse Ox O2 Delivery O2 Flow Rate FiO2 03/08/19 12:00 98.1 83 16 136/68 (90) 99 03/08/19 08:00 25 03/07/19 17:19 Ventilator 03/07/19 01:00 I&O- Last 24 Hours up to 6 AM 03/08/19 06:00 Intake Total 3454 ml Output Total 2795 ml Balance 659 ml WALT ELLIOTT DO Mar 08, 2019 16:01
[2019-03-08] MEDS ORDERED: HumaLOG INSULIN (NovoLOG) PER UNIT SC SCH (21:00)
[2019-03-08] MEDS ORDERED: CHLORASEPTIC SPRAY MT PRN (21:45)
[2019-03-09] MEDS: oxyCODONE 5MG TAB PO PRN ×2 (00:08→05:46)
[2019-03-09 00:10] VITALS: BP 135/65
[2019-03-09] MEDS: methylPREDNISolone INJ 125 MG/2 ML VIAL (J2930) IV SCH (02:14)
[2019-03-09] MEDS: MORPHINE 4 MG/ML 1ML VIAL/SYRINGE (J2270) IV PRN ×3 (02:31→11:13)
[2019-03-09] MEDS: ALBUTEROL SULFATE 2.5 MG/0.5 ML INH NEB SOLN NEB SCH ×3 (03:09→11:57)
[2019-03-09 04:00] VITALS: BP 140/62
[2019-03-09] MEDS: HEPARIN SOD (PORCINE) 5000 UNITS/ML VIAL SC SCH (05:43)
[2019-03-09 05:44] LABS: HEMOGLOBIN 11.4 g/dl (12.0-15.5); MEAN CORPUSCULAR HEMOGLOBIN 27.7 pg (27.0-33.0); MEAN CORPUSCULAR HGB CONC 31.7 g/dl (32.0-36.5); MEAN CORPUSCULAR VOLUME 87.4 fl (80.0-96.0); PLATELET COUNT, AUTOMATED 212 10^3/uL (150-450); RED BLOOD COUNT 4.12 10^6/uL (4.00-5.40); WHITE BLOOD COUNT 9.2 10^3/uL (4.0-10.0)
[2019-03-09 06:13] LABS: ALBUMIN 3.2 GM/DL (3.2-5.2); ALT/SGPT 23 U/L (12-78); BILIRUBIN,TOTAL 0.3 MG/DL (0.2-1.0); BLOOD UREA NITROGEN 12 MG/DL (7-18); CALCIUM LEVEL 8.9 MG/DL (8.8-10.2); CARBON DIOXIDE LEVEL 29 MEQ/L (21-32); CHLORIDE LEVEL 104 MEQ/L (98-107); CHOLESTEROL LEVEL 289 MG/DL (< 200); CPK CREATINE PHOSPHOKINASE 239 U/L (26-192); CREATININE FOR GFR 0.75 MG/DL (0.55-1.30); GLOMERULAR FILTRATION RATE > 60.0 (>45); GLUCOSE, FASTING 160 MG/DL (70-100); LDH LACTATE DEHYDROGENASE 219 U/L (84-246); POTASSIUM SERUM 4.1 MEQ/L (3.5-5.1); SODIUM LEVEL 138 MEQ/L (136-145); TOTAL PROTEIN 6.9 GM/DL (6.4-8.2); TRIGLYCERIDES LEVEL 73 MG/DL (<150)
[2019-03-09 08:00] VITALS: BP 142/70
[2019-03-09] MEDS: HumaLOG INSULIN (NovoLOG) PER UNIT SC SCH ×2 (08:07→12:00)
[2019-03-09 08:09] VITALS: BP 142/70
[2019-03-09] MEDS: METOPROLOL SUCC *XL* 25MG TAB (TopROL *XL*) PO SCH (08:09)
[2019-03-09] MEDS: amLODIPine 10 MG TAB PO SCH (08:09)
[2019-03-09] MEDS ORDERED: predniSONE 20 MG TAB PO SCH (09:00)
[2019-03-09] MEDS ORDERED: LORATADINE 10 MG TAB PO SCH (09:00)
[2019-03-09] MEDS ORDERED: raNITIdine SYRUP 150 MG/10 ML UDC GT SCH (09:00)
[2019-03-09] MEDS ORDERED: CLAR10TA7 PO (11:46)
[2019-03-09] MEDS ORDERED: PRED20TA PO (11:46)
--- NOTE | 2019-03-09 19:38 | DS.PDOC ---
Discharge Summary General Date of Admission Mar 06, 2019 at 09:26 Date of Discharge 03/09/19 Primary Care Physician: STUART OSMAN MD Attending Physician: WALT ELLIOTT DO Specialist/Consultants Involve: Varun Murrieta Discharge Summary PROCEDURES PERFORMED DURING STAY: Intubated 03/06/19, Extubated 03/08/19 ADMITTING DIAGNOSES: 1. Angioedema 2. Respiratory failure 3. Respiratory alkalosis DISCHARGE DIAGNOSES: 1) respiratory failure secondary to angioedema due to lisinopril 2) Respiratory alkalosis - resolved (due to #1) 3) Angioedema due to rodolfo-I 4) Essential HTN 5) Diabetes - not on residential insulin; with hyperglycemia COMPLICATIONS/CHIEF COMPLAINT: Rodolfo Inhibitor Aggravated Angioedema Airway Comprom. HISTORY OF PRESENT ILLNESS: 63-year-old female with known diabetes non-insulin dependent and continued tobacco abuse with known neuropathy. She has underlying hypertension. She presented today saying that she felt as though her lips and tongue were swelling. She quickly developed angioedema, compromised her airway, was able to be intubated by Dr. Morgan. See H&P for details HOSPITAL COURSE: patient admitted to ICU by parts clerk and intubated. She received IV solumedrol, benadryl and H2 lorene. She continued to improve and was extubated 03/08/19. Care then transferred to hospitalist. She was tapered on steroid and continued on antihistamine/[id number] with no further reoccurance of angioedema. Her blood pressure was well controlled with norvasc. she was discharged in stable and improved condition DISCHARGE MEDICATIONS: Please see below. ALLERGIES: Please see below. PHYSICAL EXAMINATION ON DISCHARGE: VITAL SIGNS: Please see below. GENERAL: pleasant, NAD AAOx3 HEENT: no facial swelling CARDIOVASCULAR EXAMINATION:HRRR no murmur RESPIRATORY EXAMINATION: LCTA no W/R/R LABORATORY DATA: Please see below. ACTIVITY: as tolerated DIET: carb consistent DISCHARGE PLAN: discharge home DISCHARGE INSTRUCTIONS: 1. off work until 03/14/19 2. prednsione taper x 3 days 3. discussion with patient and daughter RODOLFO-I allergy 4. follow up with PCP in 5-7 days for recheck of blood pressure ITEMS TO FOLLOWUP ON ON OUTPATIENT: 1. C-1 labs DISCHARGE CONDITION: stable TIME SPENT ON DISCHARGE: 35 minutes. Vital Signs/I&Os Vital Signs Date Time Temp Pulse Resp B/P (MAP) Pulse Ox O2 Delivery O2 Flow Rate FiO2 03/09/19 11:13 20 03/09/19 08:09 85 142/70 03/09/19 08:00 98.2 99 03/08/19 09:00 40 03/07/19 17:19 Ventilator 03/07/19 01:00 I&O- Last 24 Hours up to 6 AM 03/09/19 06:00 Intake Total 1835 ml Output Total 1445 ml Balance 390 ml Laboratory Data Labs 24H Laboratory Tests 2 03/08/19 17:05: Bedside Glucose (Misc Panel) 120H 03/08/19 21:21: Bedside Glucose (Misc Panel) 181H 03/09/19 02:26: Bedside Glucose (Misc Panel) 157H 03/09/19 05:19: Nucleated Red Blood Cells % (auto) 0.0, Anion Gap 5L, Glomerular Filtration Rate > 60.0, Blood Urea Nitrogen 12, Creatinine 0.75, Sodium Level 138, Potassium Level 4.1, Chloride Level 104, Carbon Dioxide Level 29, Calcium Level 8.9, Phosphorus Level 3.0#, Aspartate Amino Transf (AST/SGOT) 23, Alanine Aminotransferase (ALT/SGPT) 23, Lactate Dehydrogenase 219, Total Creatine Kinase 239#H, Alkaline Phosphatase 49, Total Bilirubin 0.3, Triglycerides Level 73, Cholesterol Level 289H, Total Protein 6.9, Albumin 3.2, Albumin/Globulin Ratio 0.86L CBC/BMP Laboratory Tests 03/09/19 05:19 Red Blood Count 4.12, Mean Corpuscular Volume 87.4, Mean Corpuscular Hemoglobin 27.7, Mean Corpuscular Hemoglobin Concent 31.7 L, Red Cell Distribution Width 15.1 H, Calcium Level 8.9, Phosphorus Level 3.0 #, Aspartate Amino Transf (AST/SGOT) 23, Alanine Aminotransferase (ALT/SGPT) 23, Lactate Dehydrogenase 219, Total Creatine Kinase 239 #H, Alkaline Phosphatase 49, Total Bilirubin 0.3, Triglycerides Level 73, Cholesterol Level 289 H, Total Protein 6.9, Albumin 3.2 FSBS Laboratory Tests Test 03/08/19 17:05 03/08/19 21:21 03/09/19 02:26 Range/Units Bedside Glucose (Misc Panel) 120 181 157 80-115 MG/DL Discharge Medications Scheduled Amlodipine Besylate (Amlodipine Besylate) 10 Mg Tab, 10 MG PO DAILY, (Reported) Gabapentin (Gabapentin) 100 Mg Cap, 100 MG PO TID, (Reported) Loratadine (Claritin) 10 Mg Tablet, 10 MG PO DAILY Metformin HCl (Metformin HCl) 500 Mg Tab, 500 MG PO BID, (Reported) Metoprolol Tartrate (Metoprolol Tartrate) 50 Mg Tablet, 25 MG PO BID, (Reported) Prednisone (Prednisone) 20 Mg Tablet, 20 MG PO DAILY start 03/10/19 Simvastatin (Simvastatin) 20 Mg Tab, 20 MG PO DAILY, (Reported) Scheduled PRN Acetaminophen with Codeine (Acetaminophen-Cod #4 Tablet) 1 Each Tablet, 1 TAB PO Q4H PRN for PAIN, (Reported) Cyclobenzaprine HCl (Cyclobenzaprine HCl) 10 Mg Tab, 10 MG PO TID PRN for SPASMS, (Reported) Allergies Coded Allergies: lisinopril (Verified Allergy, Severe, ANGIO EDEMA, 03/06/19) WALT ELLIOTT DO Mar 09, 2019 11:37
[2019-03-10 14:07] LABS: TRYPTASE 3.7 ug/L (2.2-13.2)
== END 2019-03-09 14:00 | disposition home or self-care (01) | DRG 915 ==
LOC: M ED 07:40 → M ED INP 09:26 → M ICU 12:46 → M PCU 03-08 22:00
PROVIDERS: ADMIT Internal Medicine Pulmonary Disease; ATTEND Family Medicine
PROC: 5A1945Z Respiratory Ventilation, 24-96 Consecutive Hours (ICD-10-PCS; principal; 2019-03-06)
DX: T78.3XXA Angioneurotic edema, initial encounter (principal); J96.90 Respiratory failure, unspecified, unspecified whether with hypoxia or hypercapnia; I10 Essential (primary) hypertension; E11.65 Type 2 diabetes mellitus with hyperglycemia; E11.40 Type 2 diabetes mellitus with diabetic neuropathy, unspecified; F17.200 Nicotine dependence, unspecified, uncomplicated; Z79.899 Other long term (current) drug therapy; Z88.8 Allergy status to other drugs, medicaments and biological substances; Z79.82 Long term (current) use of aspirin; K57.30 Diverticulosis of large intestine without perforation or abscess without bleeding; K44.9 Diaphragmatic hernia without obstruction or gangrene; E78.5 Hyperlipidemia, unspecified; G89.29 Other chronic pain; T46.4X5A Adverse effect of angiotensin-converting-enzyme inhibitors, initial encounter

== ENCOUNTER 2019-04-28 07:14 | Day surgery (SDC) | payer OTHER ==
[~2019-04-28] VITALS: Ht 157.5 cm; Wt 69.4 kg
[~2019-04-28 07:14] MED LIST changes: +ACET300T52 PO; +BALANCED SALT IRRIGATION SOLUTION 500ML BAG (FOR OR EYE MACHINE) As Ordered ONE; +BESI0.6S OD; +BROM0.07 OD; +CEFUROXIME 1MG/0.1ML INTRACAMERAL INJ As Ordered ONE; +CLAR10TA7 PO; +CVS5000S2 SL; +DUOVISC (0.50ML VISCOAT/0.55ML PROVISC) OPHTH KIT As Ordered ONE; +LIDOCAINE 0.75%/EPINEPHRINE 0.025% IN BSS 1ML SYR INTRACAMERAL (OR ONLY) As Ordered ONE; +METO50TA7 PO; +MULTCAP PO; +OFLOXACIN 0.3 % (OCUFLOX) OPTH SOL 5ML OD ONE; +OMEG1CAP16 PO; +PHENYLEPHRINE 2.5% OPHTH SOL 2ML OD ONE; +POVIDONE-IODINE 5% OPHTH PREP SOL 30ML As Ordered ONE; +PRED20TA PO; +PROPARACAINE 0.5% OPHTH SOL 15ML OD ONE; -SIMV20TA2 PO; +SIMV20TA22 PO; +TROPICAMIDE 1% OPHTH SOLN 2ML OD ONE; +VITA200015 PO
[2019-04-28] MEDS ORDERED: MIDAZOLAM INJ 2 MG/2 ML VIAL (J2250) As Ordered ONE (08:00)
[2019-04-28] MEDS ORDERED: fentaNYL 100 MCG/2 ML INJECTION (J3010) As Ordered ONE (08:00)
[2019-04-28 09:05] VITALS: BP 150/85
--- NOTE | 2019-04-29 17:57 | RO ---
DATE OF PROCEDURE: 04/28/2019 PREOPERATIVE DIAGNOSIS: Visually significant nuclear sclerotic cataract right eye. POSTOPERATIVE DIAGNOSIS: Visually significant nuclear sclerotic cataract right eye. PROCEDURE: Cataract extraction with use of phacoemulsification and placement of intraocular lens, [id number], 21.5 D, right eye. SURGEON: Yusuf Collado DO AUTO MECHANIC APPRENTICE: None. ANESTHESIA: Local with monitored anesthesia care (MAC). COMPLICATIONS: None. POSTOPERATIVE CONDITION: Stable. INDICATIONS FOR SURGERY: Blurred vision affecting patients activities of daily living. DESCRIPTION OF PROCEDURE: The patient was seen in the preoperative area and properly identified. The correct operative eye was identified and marked. The patient received topical anesthetic, antibiotics, and topical dilating drops. The patient was then transferred to the operating room. The correct side was re-identified, and a time-out was performed. The eye was prepped and draped in a sterile fashion. The eyelids were isolated with Tegaderm tape, and the lids were held open with an adjustable speculum. A 1.0 mm paracentesis incision was made. Intraocular preservative-free Shugarcaine was then injected into the anterior chamber. Viscoelastic was then injected into the anterior chamber through the paracentesis. Using a 2.4 mm sharp-tipped keratome, the anterior chamber was entered via a temporal clear cornea incision. A continuous curvilinear capsulorrhexis was created with Utrata forceps. Hydrodissection was performed with balanced salt solution (BSS) on a blunt cannula until the nucleus was able to rotate freely. The crystalline lens was phacoemulsified and aspirated. Irrigation/aspiration was used to remove the cortical material. Cohesive viscoelastic was placed into the capsular bag to deepen it. The implant was placed into the capsular bag and allowed to unfold. Placement was confirmed by visualizing the anterior capsulorrhexis. Irrigation/aspiration was used to remove the viscoelastic. The clear corneal incision was hydrated with BSS on a blunt cannula. The lens was well positioned. The incisions were then tested for leaks and found to be negative. The eye was then palpated for appropriate pressure and adjusted accordingly with BSS. The eyelid speculum was then carefully removed. A shield was placed over the eye. The patient tolerated the procedure well and was discharged to the recovery unit in a stable condition.
== END 2019-04-28 09:20 | disposition home or self-care (01) ==
LOC: M SDC 07:14
PROVIDERS: ATTEND Ophthalmology
DX: H25.11 Age-related nuclear cataract, right eye (principal); I10 Essential (primary) hypertension; E78.5 Hyperlipidemia, unspecified; E11.9 Type 2 diabetes mellitus without complications; K57.92 Diverticulitis of intestine, part unspecified, without perforation or abscess without bleeding; K21.9 Gastro-esophageal reflux disease without esophagitis; F17.210 Nicotine dependence, cigarettes, uncomplicated; Z88.8 Allergy status to other drugs, medicaments and biological substances; Z79.84 Long term (current) use of oral hypoglycemic drugs; Z79.899 Other long term (current) drug therapy
CPT/HCPCS: 66984; J2250; J3010